=== PATIENT | female | born 1945 | race Caucasian/White ===

== ENCOUNTER 2022-12-08 07:47 | Emergency (ER) | payer BC ==
[~2022-12-08] VITALS: Ht 152.4 cm; Wt 62.6 kg
[2022-12-08] MEDS ORDERED: SYNTHROID50 MCG PO (07:59)
== END 2022-12-08 10:53 | disposition home or self-care (01) ==
LOC: ER 07:47
DX: L03.114 Cellulitis of left upper limb (principal)